=== PATIENT | female | born 1985 | race African-American/Black ===

== ENCOUNTER 2016-08-20 17:25 | Emergency (ER) | payer SELFPAY ==
[~2016-08-20 17:25] MED LIST: SILVADENE ONE
[2016-08-20 17:31] VITALS: BP 133/79; BMI 31.6
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
[2016-08-20] MEDS ORDERED: HYDROGEN PEROXIDE 3% ONE (17:50)
[2016-08-20] MEDS ORDERED: ADACEL TDaP IM ONE ×2 (17:52→19:15)
[2016-08-20] MEDS ORDERED: SILVADENE TOP NR (18:00)
== END 2016-08-20 19:25 | disposition home or self-care (01) ==
LOC: ER 17:33
DX: T25.222A Burn of second degree of left foot, initial encounter (principal); T25.221A Burn of second degree of right foot, initial encounter
CPT/HCPCS: 90471; 99282